=== PATIENT | female | born 1990 | race Caucasian/White ===

== ENCOUNTER 2020-07-14 08:44 | Emergency (ER) | payer MEDICAID ==
[~2020-07-14] VITALS: Ht 157.5 cm; Wt 86.4 kg
[2020-07-14 09:14] VITALS: BP 119/66
== END 2020-07-14 10:30 | disposition home or self-care (01) ==
LOC: EMS 08:52
DX: G47.00 Insomnia, unspecified (principal); M62.838 Other muscle spasm; M25.511 Pain in right shoulder
CPT/HCPCS: 99283